=== PATIENT | female | born 1970 | race Caucasian/White ===

== ENCOUNTER 2017-08-02 15:32 | Emergency (ER) | payer OTHER ==
[~2017-08-02] VITALS: Ht 170.2 cm; Wt 81.2 kg
[2017-08-02] MEDS ORDERED: ALBUTEROL/IPRATROPIUM 3 ML NEB NEB ONE (16:00)
[2017-08-02] MEDS ORDERED: DEXAMETHASONE SOD PHOS 10 MG/1 ML VIAL INJ ONE (16:00)
[2017-08-02] MEDS ORDERED: CLINDAMYCIN PHOS 600 MG/ 4 ML VIAL IM ONE (16:00)
== END 2017-08-02 16:25 | disposition home or self-care (01) ==
LOC: FSED 15:32
DX: R05 Cough (principal); R07.89 Other chest pain; J02.9 Acute pharyngitis, unspecified; J20.9 Acute bronchitis, unspecified
CPT/HCPCS: 99283; J1100

== ENCOUNTER 2017-08-06 14:14 | Emergency (ER) | payer OTHER ==
[~2017-08-06] VITALS: Ht 170.2 cm; Wt 81.2 kg
--- OUTSIDE RECORDS SUMMARY | 2017-08-06 14:16 | XMS REPORT | Continuity of Care Document ---
Author Author [facility] Organization [facility] Address [address] [place] [address] Phone Unavailable Care Team Providers Care Dental Officer Name Role Phone NO, PCP PCP Unavailable Insurance Providers Payer [facility] Policy Number [id number] Subscriber's Name Inna Graham Relationship 18 Self / Same As Patient Group Number [id number] Group Name [employer] Effective Date 17 Advance Directives Directive Response Recorded Date/Time Does the patient have an advance directive? No 08/02/17 4:39pm If yes, is advance directive on file with [facility]? No 08/02/17 4:39pm If not on file with [facility] will patient provide a copy? No 08/02/17 4:39pm Do you have a Directive to Physician? No 08/02/17 4:39pm Do you have a Medical Power of Material Assistant? No 08/02/17 4:39pm Do you have an out of hospital Do Not Resuscitate Order? No 08/02/17 4:39pm Do you have any special needs we should be aware of? No 08/02/17 4:39pm Do you have a support person here with you today? Yes 08/02/17 4:39pm Did patient receive Notice of Privacy Practices? Yes 08/02/17 4:39pm Did patient receive patient rights and responsibilities? Yes 08/02/17 4:39pm Problems No problem information available. Medications No medication information available. Social History Smoking Status Start Date Stop Date Never Smoker Hospital Discharge Instructions No hospital discharge instruction information available. Plan of Care Discharge Date 08/02/17 4:25pm Disposition HOME, SELF-CARE Condition at Discharge Stable Instructions/Education Provided Bronchitis (Acute) - Adult Pleurisy Forms Provided Work/School Excuse Prescriptions See Medication Section Additional Instructions/Education Discussed with patient in detail the diagnosis of pleurisy and bronchitis. Recommend medical therapy with follow up with MD if no better in 4 days. ED warnings given. Functional Status No functional status information available. Allergies, Adverse Reactions, Alerts Allergen Type Severity Reaction Status Last Updated ASPRIN Allergy Severe anaphylaxis Active 08/02/17 PCN Allergy Severe anaphylaxis Active 08/02/17 Immunizations No immunization information available. Vital Signs Acute Vital Signs Vital Response Date/Time Pulse Pulse Rate (adult) 90 bpm (60 - 90) 08/02/2017 4:23pm Respiratory Rate 18 bpm (12 - 24) 08/02/2017 4:23pm Height 5 ft 7 in 08/02/2017 3:45pm Weight 179 lb 08/02/2017 3:45pm Body Mass Index 28.0 kg/m^2 08/02/2017 3:45pm Results No relevant diagnostic test, laboratory data and/or discharge summary information available. Procedures No procedure information available. Encounters Encounter Location Arrival/Admit Date Discharge/Depart Date Attending Provider Departed Emergency Room [facility] 08/02/17 3:32pm 4:25pm JOELLEN ESTEVEZ MD
[2017-08-06] MEDS ORDERED: PROAIR HFA INH8.5 GM (16:07)
[2017-08-06] MEDS ORDERED: ALBUTEROL/IPRATROPIUM 3 ML NEB NEB ONE (18:45)
[2017-08-06 20:32] VITALS: BP 128/66
== END 2017-08-06 19:13 | disposition home or self-care (01) ==
LOC: FSED 14:14
DX: R50.9 Fever, unspecified (principal); R05 Cough; J20.9 Acute bronchitis, unspecified; J45.901 Unspecified asthma with (acute) exacerbation
CPT/HCPCS: 71046; 87400; 99283